=== PATIENT | female | born 1955 | race Caucasian/White ===

== ENCOUNTER → 2016-11-09 | Outpatient (REF) | payer MEDICARE | LOC: M LAB REF 12:53 | PROVIDERS: ATTEND Physician Assistant | DX: N39.0 Urinary tract infection, site not specified (principal) ==

== ENCOUNTER → 2017-01-28 | Outpatient (REF) | payer MEDICARE ==
[2017-01-28 14:02] LABS: MICROSCOPIC INDICATED? MAN YES (NO)
[2017-01-28 14:04] LABS: BACTERIA, URINE NONE SEEN; HYALINE CAST, URINE NONE SEEN /lpf (0-1); RBC, URINE TNTC /hpf (0-3); SQUAMOUS EPITHELIAL CELL URINE MOD AMOUNT /hpf (SMALL AMT); WBC, URINE TNTC /hpf (0-3)
[2017-01-28 14:05] LABS: MICROSCOPIC EXAM PERFORMED
== END ==
LOC: M LAB REF 09:56
PROVIDERS: ATTEND Physician Assistant
DX: N39.0 Urinary tract infection, site not specified (principal)

== ENCOUNTER → 2017-03-28 | Outpatient (REF) | payer MEDICARE | LOC: M LAB REF 12:58 | PROVIDERS: ATTEND Physician Assistant | DX: R30.0 Dysuria (principal) ==

== ENCOUNTER → 2017-11-04 | Outpatient (REF) | payer MEDICARE ==
[2017-11-04 22:30] LABS: AMORPHOUS SEDIMENT SMALL (NEGATIVE); APPEARANCE, URINE CLOUDY (CLEAR); BACTERIA, URINE AUTO NEGATIVE (NEGATIVE); BILIRUBIN, URINE AUTO NEGATIVE (NEGATIVE); BLOOD, URINE BLOOD 3+ (NEGATIVE); COLOR, URINE YELLOW (YELLOW); GLUCOSE, URINE (UA) AUTO NEGATIVE (NEGATIVE); KETONE, URINE AUTO NEGATIVE (NEGATIVE); LEUKOCYTE ESTERASE, URINE AUTO 2+ (NEGATIVE); NITRITE, URINE AUTO NEGATIVE (NEGATIVE); PROTEIN, URINE AUTO NEGATIVE (NEGATIVE); RBC, URINE AUTO TNTC /HPF (0-3); SPECIFIC GRAVITY URINE AUTO 1.011 (1.002-1.035); SQUAMOUS EPITHELIAL CELL UR AU 0 /HPF (0-6); UROBILINOGEN, URINE AUTO 0.2 mg/dL (0.0-2.0); WBC, URINE AUTO 94 /HPF (0-3)
== END ==
LOC: M LAB REF 08:54
DX: N39.0 Urinary tract infection, site not specified (principal)
CPT/HCPCS: 81001

== ENCOUNTER → 2018-01-19 | Outpatient (REF) | payer MEDICARE ==
[2018-01-19 20:10] LABS: APPEARANCE, URINE HAZY (CLEAR); BACTERIA, URINE AUTO 1+ (NEGATIVE); BILIRUBIN, URINE AUTO NEGATIVE (NEGATIVE); BLOOD, URINE BLOOD 2+ (NEGATIVE); COLOR, URINE YELLOW (YELLOW); GLUCOSE, URINE (UA) AUTO NEGATIVE (NEGATIVE); KETONE, URINE AUTO NEGATIVE (NEGATIVE); LEUKOCYTE ESTERASE, URINE AUTO 3+ (NEGATIVE); MUCUS, URINE SMALL (NEGATIVE); NITRITE, URINE AUTO NEGATIVE (NEGATIVE); PROTEIN, URINE AUTO NEGATIVE (NEGATIVE); RBC, URINE AUTO 86 /HPF (0-3); SPECIFIC GRAVITY URINE AUTO 1.005 (1.002-1.035); SQUAMOUS EPITHELIAL CELL UR AU 0 /HPF (0-6); UROBILINOGEN, URINE AUTO 0.2 mg/dL (0.0-2.0); WBC, URINE AUTO 109 /HPF (0-3)
== END ==
LOC: M LAB REF 15:22
DX: R30.0 Dysuria (principal)
CPT/HCPCS: 81001

== ENCOUNTER 2023-09-05 06:59 | Day surgery (SDC) | payer MEDICARE ==
[~2023-09-05] VITALS: Ht 162.6 cm; Wt 52.5 kg
[~2023-09-05 06:59] MED LIST: BSS IRRIG/VANCO(10MG)/TOBRA(5MG)/EPINEPH(1:1000-0.5CC)500ML BAG-ORONLY IR ONE; CEFUROXIME 1MG/0.1ML INTRACAMERAL INJ As Ordered ONE; CYCLOPENTOLATE 1% OPHTH SOLN 2ML BTL OD SCH; IBUP80TA PO; LIDOCAINE 1% SDV 5ML VIAL As Ordered ONE; LIDOCAINE 3.5 % 1ML OPHTH TOPICAL GEL OU ONE; OFLOXACIN 0.3 % (OCUFLOX) OPTH SOL 5ML OD ONE; PHENYLEPHRINE 10% OPHTH SOL 5ML OD PRN; PHENYLEPHRINE 2.5% OPHTH SOL 2ML OD SCH; TIZA10TA PO; TROPICAMIDE 1% OPHTH SOLN 15ML OD SCH
[2023-09-05] MEDS ORDERED: fentaNYL 100 MCG/2 ML INJECTION As Ordered ONE (07:16)
[2023-09-05] MEDS ORDERED: MIDAZOLAM INJ 2MG/2ML VIAL As Ordered ONE (07:16)
[2023-09-05 09:25] VITALS: BP 118/71; TEMP 97.3; O2SAT 99
== END 2023-09-05 09:42 | disposition home or self-care (01) ==
LOC: M SDC 06:59
PROVIDERS: ATTEND Ophthalmology
DX: H25.11 Age-related nuclear cataract, right eye (principal); H40.1112 Primary open-angle glaucoma, right eye, moderate stage; Z79.899 Other long term (current) drug therapy
CPT/HCPCS: 66991; C1783; J0697; J2250; J3010; V2632

== ENCOUNTER 2024-02-27 10:30 | Day surgery (SDC) | payer MEDICARE ==
[~2024-02-27] VITALS: Ht 162.6 cm; Wt 54.0 kg
[~2024-02-27 10:30] MED LIST changes: -BSS IRRIG/VANCO(10MG)/TOBRA(5MG)/EPINEPH(1:1000-0.5CC)500ML BAG-ORONLY IR ONE; -CEFUROXIME 1MG/0.1ML INTRACAMERAL INJ As Ordered ONE; -CYCLOPENTOLATE 1% OPHTH SOLN 2ML BTL OD SCH; -LIDOCAINE 1% SDV 5ML VIAL As Ordered ONE; -LIDOCAINE 3.5 % 1ML OPHTH TOPICAL GEL OU ONE; -OFLOXACIN 0.3 % (OCUFLOX) OPTH SOL 5ML OD ONE; -PHENYLEPHRINE 10% OPHTH SOL 5ML OD PRN; +PHENYLEPHRINE 10% OPHTH SOL 5ML OS PRN; -PHENYLEPHRINE 2.5% OPHTH SOL 2ML OD SCH; -TROPICAMIDE 1% OPHTH SOLN 15ML OD SCH
[2024-02-27] MEDS: OFLOXACIN 0.3 % (OCUFLOX) OPTH SOL 5ML OS ONE (10:48)
[2024-02-27] MEDS: ATROPINE SULFATE 1% OPHTH SOLN 2ML BTL OS SCH (10:48)
[2024-02-27] MEDS: TROPICAMIDE 1% OPHTH SOLN 15ML OS SCH (10:48)
[2024-02-27] MEDS: PHENYLEPHRINE 2.5% OPHTH SOL 2ML OS SCH (10:48)
[2024-02-27] MEDS: LIDOCAINE 3.5 % 1ML OPHTH TOPICAL GEL OU ONE (10:49)
[2024-02-27] MEDS ORDERED: fentaNYL 100 MCG/2 ML INJECTION As Ordered ONE (11:24)
[2024-02-27] MEDS: BSS IRRIG/VANCO(10MG)/TOBRA(5MG)/EPINEPH(1:1000-0.5CC)500ML BAG-ORONLY As Ordered ONE (11:24)
[2024-02-27] MEDS ORDERED: MIDAZOLAM INJ 2MG/2ML VIAL As Ordered ONE (11:24)
[2024-02-27] MEDS: LIDOCAINE 1% SDV 5ML VIAL As Ordered ONE (11:24)
[2024-02-27] MEDS: TOBRADEX OPHTH OINT 3.5 GM As Ordered ONE (11:35)
[2024-02-27] MEDS: CEFUROXIME 1MG/0.1ML INTRACAMERAL INJ As Ordered ONE (11:35)
[2024-02-27 11:40] VITALS: BP 118/66; TEMP 98; O2SAT 100
== END 2024-02-27 12:04 | disposition home or self-care (01) ==
LOC: M SDC 10:30
PROVIDERS: ATTEND Ophthalmology
DX: H25.12 Age-related nuclear cataract, left eye (principal); H40.1121 Primary open-angle glaucoma, left eye, mild stage; Z79.899 Other long term (current) drug therapy; Z98.41 Cataract extraction status, right eye
CPT/HCPCS: 66991; C1783; J0697; J2250; J3010; V2632